=== PATIENT | female | born 1965 | race American Indian/Alaskan Native ===

== ENCOUNTER 2018-01-31 09:43 | Outpatient (CLI) | payer OTHER ==
--- NOTE | 2018-01-31 11:12 | Ultrasound Report ---
BILATERAL DIGITAL DIAGNOSTIC MAMMOGRAM with CAD and RIGHT BREAST ULTRASOUND: 01/31/18 10:00:00 CLINICAL: Right breast lump. COMPARISON:None. FINDINGS: The breasts are heterogeneously dense, which may obscure small masses. An oval lobulated right periareolar mass at 11 o'clock approximately 3 cm from the nipple correlates with the palpable lump.It contains a few calcifications. No other mass. No architectural distortion or suspicious calcifications. The left breast is negative.. Ultrasound of the right breast demonstrated a superficial solid oval growth lobulated heterogeneous hypoechoic mass at 11 o'clock 5 cm from the nipple. It measures 3.7 x 2.1 x 4.3 cm and corresponds to the mammographic mass. It contains a few relatively large calcifications which are identified on the ultrasound. IMPRESSION: A solid 4.3 cm right breast mass at 11 o'clock 3-5 cm from the nipple. Negative left breast. BI-RADS CATEGORY: 4--Suspicious RECOMMENDATION: Ultrasound guided needle core biopsy of the right breast mass. Routine screening of the left breast. ACR BI-RADS MAMMOGRAPHIC CODES: 0 = Needs additional imaging evaluation; 1 = Negative; 2 = Benign; 3 = Probably benign; 4 = Suspicious; 5 = Malignant; 6 = Known biopsy-proven malignancy COMMENT: 1. Dense breast tissue, i.e., adenosis, fibrocystic changes, etc., may obscure an underlying neoplasm. 2. Approximately 10% of cancers are not detected with mammography. 3. A negative mammography report should not delay biopsy if a clinically suspicious mass is present. COMMENT: Patient follow-up letters are generated by our [facility] ([facility]) application.
== END 2018-01-31 09:44 | disposition home or self-care (01) ==
LOC: MAMMO 09:43
PROVIDERS: ATTEND Student in an Organized Health Care Education/Training Program
DX: N63.10 Unspecified lump in the right breast, unspecified quadrant (principal); R92.8 Other abnormal and inconclusive findings on diagnostic imaging of breast
CPT/HCPCS: 77066

== ENCOUNTER 2018-02-20 09:35 | Outpatient (CLI) | payer OTHER ==
--- NOTE | 2018-02-25 11:29 | Ultrasound Report ---
ULTRASOUND GUIDED NEEDLE CORE BIOPSY RIGHT BREAST WITH CLIP PLACEMENT: 02/20/18 09:30:00 CLINICAL: A solid 4.3 cm right breast mass. COMPARISON :01/31/18 FINDINGS: The procedure was explained to the patient and informed consent was obtained. Ultrasound demonstrated the previously described mass at 11 o'clock approximately 3 cm from the nipple. I marked the breast with a felt tip marker and a time out was called. The skin was prepped with Betadine and anesthetized with 1% lidocaine. Needle core biopsy was performed through a tiny dermatotomy using ultrasound guidance, 2% lidocaine with epinephrine for deep anesthesia and a 14-gauge Achieve biopsy device. 3 cores were obtained and placed in formalin. A clip was deployed within the mass. The patient tolerated the procedure well and there were no apparent complications. Hemostasis was achieved with minimal pressure and a sterile dressing was applied. A two view mammogram demonstrated satisfactory concordant clip placement. She left the department in good condition and was given instructions for wound care and followup. IMPRESSION: Uncomplicated ultrasound guided needle core biopsy with clip placement right breast.
== END 2018-02-20 09:36 | disposition home or self-care (01) ==
LOC: SPVWC 09:35
PROVIDERS: ATTEND Student in an Organized Health Care Education/Training Program
DX: N60.11 Diffuse cystic mastopathy of right breast (principal)
CPT/HCPCS: 19083; 77065; 88305; A4648

== ENCOUNTER 2020-12-12 08:43 | Outpatient (CLI) | payer BC ==
--- NOTE | 2020-12-12 09:55 | Mammography Report ---
DIGITAL DIAGNOSTIC MAMMOGRAM WITH CAD CONVENTIONAL, 12/12/2020 CLINICAL INFORMATION / INDICATION: Right breast swelling for one year. Prior benign right breast biop sy. N64.9 DISORDER OF THE BREAST TECHNIQUE: Digital bilateral mammographic imaging was performed. This examination was interpreted with the benefit of Computer-aided Detection analysis. COMPARISON: 02/20/2018, 01/31/2018 FINDINGS: Breast Density: The breasts are heterogeneously dense, which may obscure small masses. There is markedly increased density throughout the right breast since the last mammogram secondary to a large mass that occupies the entire right breast. Calcifications of varying shape and size have in creased in number throughout the right breast with a generalized distribution. A previously seen [facility] breast biopsy clip is unchanged. No suspicious mass, calcification, asymmetry or architectural distortion is seen in the left breast. IMPRESSION: Interval development of a suspected large right breast mass occupying almost the entire b reast. A right breast ultrasound is recommended for further evaluation. Follow up recommendation: Ultrasound BI-RADS Category 0: Incomplete. Needs additional imaging evaluation and/or prior mammograms for shira aburto. A "normal" or negative report should not discourage follow up or biopsy of a clinically significant f inding. A written summary of these findings will be mailed to the patient. The patient will be entered into a mammography reporting system which will generate a reminder letter for the patient's next appointmen t at the appropriate interval. According to the [employer], yearly mammograms are recommended starting at age 40 and continuing as long as a woman is in good health. Breast MRI is recommended for women with an christo roximately 20-25% or greater lifetime risk of breast cancer, including women with a strong family his tory of breast or ovarian cancer and women who have been treated for Hodgkin's disease. Signer Name: Tulio Vincent MD Signed: 12/12/2020 9:51 AM Workstation Name: [id number]
== END 2020-12-12 08:44 | disposition home or self-care (01) ==
LOC: SPVWC 08:43
PROVIDERS: ATTEND Surgery
DX: R92.1 Mammographic calcification found on diagnostic imaging of breast (principal)
CPT/HCPCS: 77066

== ENCOUNTER 2020-12-13 08:10 | Outpatient (CLI) | payer BC ==
[2020-12-13] MEDS ORDERED: LIDOCAINE (1%) 10 MG/1 ML VIAL 20 ML MDV ONE (09:04)
[2020-12-13] MEDS ORDERED: LIDOCAINE (1%) 10 MG/1 ML VIAL 20 ML MDV INFILTRATI ONE (10:00)
[2020-12-13] MEDS ORDERED: LIDOCAINE 2%/EPINEPHRINE 1:200,000 VIAL (20 ML) INFILTRATI ONE (10:00)
--- NOTE | 2020-12-13 10:28 | Ultrasound Report ---
ULTRASOUND GUIDED RIGHT BREAST BIOPSY, 12/13/2020 CLINICAL INFORMATION / INDICATION: Large right breast mass. COMPARISON: Recent mammogram 12/12/2020 and older mammogram 01/31/2018 PROCEDURE: Risks, benefits, and indications to the procedure were discussed with the patient in detail, includin g bleeding, infection, hematoma formation, and inadequate tissue sampling. The patient agreed to proc eed with both verbal and written consent. A timeout procedure was performed with two patient identifi ers. The breast was prepped and draped in the usual sterile fashion. Lidocaine 1% was used for local anes thesia. Under direct ultrasound guidance, multiple core samples were obtained of the superior region of the right breast. A biopsy marker was then placed. Biopsy device was removed and hemostasis achie lynn with manual pressure. A sterile dressing was applied to the skin. The patient tolerated the procedure without difficulty. No complications were encountered. Postbiopsy instructions were discussed with the patient and given in writing. Specimens were sent to pathology. Please note that no mammogram technologist was available to perform a postbiopsy mammogram. IMPRESSION: 1. Technically successful ultrasound guided right breast biopsy. 2. At the time of patient's next appointment with Dr. Monsalve, a postbiopsy right diagnostic mammog alejandro should be obtained for documentation of clip placement. Biopsy results are pending and will be reported in an addendum. Signer Name: Ivett Ferrera MD Signed: 12/13/2020 10:23 AM Workstation Name: [id number]
--- NOTE | 2020-12-13 10:30 | Ultrasound Report ---
ULTRASOUND GUIDED right axillary BIOPSY, 12/13/2020 CLINICAL INFORMATION / INDICATION: Large right breast mass with abnormal right axillary lymph nodes. COMPARISON: Recent mammogram 12/12/2020 PROCEDURE: Risks, benefits, and indications to the procedure were discussed with the patient in detail, includin g bleeding, infection, hematoma formation, and inadequate tissue sampling. The patient agreed to proc eed with both verbal and written consent. A timeout procedure was performed with two patient identifi ers. The breast was prepped and draped in the usual sterile fashion. Lidocaine 1% with and without epineph rine were used for local anesthesia. Under direct ultrasound guidance, multiple core samples were obt ained of an abnormal lymph node in the right axilla. This lymph node measured 10 cm in length, but de monstrated diffuse cortical thickening. A biopsy marker was then placed. Biopsy device was removed an d hemostasis achieved with manual pressure. A sterile dressing was applied to the skin. The patient tolerated the procedure without difficulty. No complications were encountered. Postbiopsy instructions were discussed with the patient and given in writing. Specimens were sent to pathology. IMPRESSION: 1. Technically successful ultrasound guided right axillary lymph node biopsy. Biopsy results are pending and will be reported in an addendum. Signer Name: Ivett Ferrera MD Signed: 12/13/2020 10:25 AM Workstation Name: [id number]
== END 2020-12-13 08:11 | disposition home or self-care (01) ==
LOC: US 08:10
PROVIDERS: ATTEND Surgery
DX: N63.11 Unspecified lump in the right breast, upper outer quadrant (principal); N64.89 Other specified disorders of breast; N62 Hypertrophy of breast; I89.8 Other specified noninfective disorders of lymphatic vessels and lymph nodes; F17.210 Nicotine dependence, cigarettes, uncomplicated; I10 Essential (primary) hypertension
CPT/HCPCS: 19083; 38505; 76942; 88305; A4648

== ENCOUNTER 2020-12-15 08:05 | Emergency (ER) | payer BC ==
[2020-12-15 08:15] VITALS: BP 161/91
--- NOTE | 2020-12-15 08:44 | Emergency Department Report ---
- General Chief complaint: Medical Clearance Stated complaint: RT BREAST/PUS Time Seen by Provider: 12/15/20 08:19 Source: patient Mode of arrival: Ambulatory Limitations: No Limitations - History of Present Illness Initial comments: The patient was evaluated in the emergency department for symptoms described in the history of present illness. He/she was evaluated in the context of the global COVID-19 pandemic, which necessitated consideration that the patient might be at risk for infection with the virus that causes COVID-19. Institutional protocols and algorithms that pertain to the evaluation of patients at risk for COVID-19 are in a state of rapid change based on information released by regulatory bodies including the CDC and federal and state organizations. These policies and algorithms were followed during the patient's care in the emergency department. Please note that these policies, procedures and recommendations changed on a rapid basis. 54-year-old -[place] female presents to the emergency room complaining of discharge from her right breast. Patient [facility] And now she states that it is having discharge. Patient denies any fever chills no nausea no vomiting. She has had a breast mass since [address] records[address] Ronnie esparza is a surgeon that is managing her care. complaint: other (Right breast mass) Onset/Timin -: days(s) Tetanus Up to Date: yes Location: chest (Right breast) Severity: mild Severity scale (0 -10): 5 Consistency: intermittent Improves with: none Worsens with: none Context: none Associated symptoms: denies other symptoms - Related Data Previous Rx's Medication Instructions Recorded Last Taken Type cephALEXin [Keflex] 500 mg PO Q12HR 7 Days #14 cap 12/15/20 Unknown Rx Allergies Allergy/AdvReac Type Severity Reaction Status Date / Time No Known Allergies Allergy Verified 12/15/20 08:10 Abscess Boil HPI - HPI Chief Complaint: Medical Clearance Stated Complaint: RT BREAST/PUS Time Seen by Provider: 12/15/20 08:19 Home Medications: Previous Rx's Medication Instructions Recorded Last Taken Type cephALEXin [Keflex] 500 mg PO Q12HR 7 Days #14 cap 12/15/20 Unknown Rx Allergies/Adverse Reactions: Allergies Allergy/AdvReac Type Severity Reaction Status Date / Time No Known Allergies Allergy Verified 12/15/20 08:10 ED Review of Systems ROS: Stated complaint: RT BREAST/PUS Other details as noted in HPI Comment: All other systems reviewed and negative ED Past Medical Hx - Past Medical History Previous Medical History?: No Hx Hypertension: (no meds) Hx Seizures: Yes (States not alcohol related. Does not take medicine) - Surgical History Past Surgical History?: No - Social History Smoking Status: Current Every Day Smoker Substance Use Type: None - Medications Home Medications: Home Medications Medication Instructions Recorded Confirmed Last Taken Type cephALEXin [Keflex] 500 mg PO Q12HR 7 Days #14 cap 12/15/20 Unknown Rx ED Physical Exam - General Limitations: No Limitations General appearance: alert, in no apparent distress - Head Head exam: Present: atraumatic, normocephalic - Eye Eye exam: Present: normal appearance - ENT ENT exam: Present: mucous membranes moist - Neck Neck exam: Present: normal inspection, full ROM - Respiratory Respiratory exam: Present: other (Right breast large firm mass with a eraser sized opening that is having cottage cheese consistent discharge very minimal redness minimal tenderness). Absent: accessory muscle use - Extremities Exam Extremities exam: Present: normal inspection, full ROM - Back Exam Back exam: Present: normal inspection - Neurological Exam Neurological exam: Present: alert, oriented X3, normal gait - Psychiatric Psychiatric exam: Present: normal affect, normal mood - Skin Skin exam: Present: warm, dry, intact, normal color. Absent: rash ED Course Vital Signs 12/15/20 08:14 Temperature 98.1 F Pulse Rate 90 Respiratory 20 Rate Blood Pressure 161/91 O2 Sat by Pulse 95 Oximetry - Consultations Consultation #1: 12/15/20 08:[address] Ani esparza she recommends I place patient on Keflex 500 mg every 12 hours for 7 days. She recommends that patient keeps her appointment on Saturday. She recommends that patient keeps the wound covered with gauze. ED Medical Decision Making - Medical Decision Making 54-year-old -[place] female presents to the emergency room complaining of discharge from her right breast. Patient had a [facility]. And now she states that it is having discharge. Patient denies any fever chills no nausea no vomiting. She has had a breast mass since [address] our [address] records[address] Dr. Ronnie esparza is a surgeon that is managing her care. Spoke to Dr. Monsalve breast surgeon she recommends patient to be placed on Keflex 500 mg every 12 hours for 7 days. Patient is to keep the wound covered with clean gauze and to keep her appointment on Saturday. Critical care attestation.: If time is entered above; I have spent that time in minutes in the direct care of this critically ill patient, excluding procedure time. ED Disposition Clinical Impression: Breast mass, right Disposition: DC- TO HOME OR SELFCARE Is pt being admited?: No Does the pt Need Aspirin: No Condition: Stable Additional Instructions: Please complete your antibiotics as prescribed. Please keep a clean gauze on your wound of your right breast. You must keep your appointment with Dr. Monsalve your breast surgeon for Saturday. Tylenol or ibuprofen as needed for pain management. Prescriptions: cephALEXin [Keflex] 500 mg PO Q12HR 7 Days #14 cap Referrals: PRIMARY MD PAWEL [Primary Care Provider] - 3-5 Days BRENDA MONSALVE MD [Staff Physician] - 3-5 Days Forms: Work/School Release Form(ED)
== END 2020-12-15 09:08 | disposition home or self-care (01) ==
LOC: ED 08:05
DX: N63.10 Unspecified lump in the right breast, unspecified quadrant (principal); R56.9 Unspecified convulsions; F17.200 Nicotine dependence, unspecified, uncomplicated; Z79.899 Other long term (current) drug therapy
CPT/HCPCS: 99282

== ENCOUNTER 2021-02-06 05:29 | Emergency (ER) | payer OTHER ==
[2021-02-06 06:52] VITALS: BP 176/98
--- NOTE | 2021-02-06 10:09 | Emergency Department Report ---
- General Chief complaint: Skin/Abscess/Foreign Body Stated complaint: RT BREAST TUMOR Time Seen by Provider: 02/06/21 08:45 Source: patient, EMS Mode of arrival: Ambulatory Limitations: No Limitations - History of Present Illness Initial comments: 55-year-old -[place] female who is known to me comes in reporting that her right breast tumor is getting worse. Patient complains of pain. Patient is supposed to be following up with Dr. Monsalve but she states she lost her insurance and did not follow back up. Patient denies any fever chills no nausea no vomiting. MD complaint: lesion - Related Data Previous Rx's Medication Instructions Recorded Last Taken Type cephALEXin [Keflex] 500 mg PO Q12HR 7 Days #14 cap 12/15/20 Unknown Rx traMADoL [Ultram 50 MG tab] 50 mg PO Q6HR PRN #8 tablet 02/06/21 Unknown Rx Allergies Allergy/AdvReac Type Severity Reaction Status Date / Time No Known Allergies Allergy Verified 12/15/20 08:10 Abscess Boil [facility] Chief Complaint: Skin/Abscess/Foreign Body Stated Complaint: RT BREAST TUMOR Time Seen by Provider: 02/06/21 08:45 Home Medications: Previous Rx's Medication Instructions Recorded Last Taken Type cephALEXin [Keflex] 500 mg PO Q12HR 7 Days #14 cap 12/15/20 Unknown Rx traMADoL [Ultram 50 MG tab] 50 mg PO Q6HR PRN #8 tablet 02/06/21 Unknown Rx Allergies/Adverse Reactions: Allergies Allergy/AdvReac Type Severity Reaction Status Date / Time No Known Allergies Allergy Verified 12/15/20 08:10 ED Review of Systems ROS: Stated complaint: RT BREAST TUMOR Other details as noted in HPI ED Past Medical Hx - Past Medical History Hx Hypertension: (no meds) Hx Seizures: Yes (States not alcohol related. Does not take medicine) - Social History Smoking Status: Current Every Day Smoker - Medications Home Medications: Home Medications Medication Instructions Recorded Confirmed Last Taken Type cephALEXin [Keflex] 500 mg PO Q12HR 7 Days #14 cap 12/15/20 Unknown Rx traMADoL [Ultram 50 MG tab] 50 mg PO Q6HR PRN #8 tablet 02/06/21 Unknown Rx ED Physical Exam - General Limitations: No Limitations ED Course Vital Signs 02/06/21 06:50 Temperature 98.0 F Pulse Rate 80 Respiratory 18 Rate Blood Pressure 176/98 O2 Sat by Pulse 98 Oximetry ED Medical Decision Making - Medical Decision Making 55-year-old -[place] female who is known to me comes in reporting that her right breast tumor is getting worse. Patient complains of pain. Patient is supposed to be following up with Dr. Rebeca esparza but she states she lost her insurance and did not follow back up. Patient denies any fever chills no nausea no vomiting. Spoke with Dr. Jose for she states she has been trying to call patient as her number was disconnected. She asked that the patient follow up in her office tomorrow at 10 AM at her's [facility] office and she will work her in. Patient be given a prescription for tramadol for pain. Phone number of the patient mother is [phone] Critical care attestation.: If time is entered above; I have spent that time in minutes in the direct care of this critically ill patient, excluding procedure time. ED Disposition Clinical Impression: Breast mass, right Disposition: DC-01 TO HOME OR SELFCARE Is pt being admited?: No Does the pt Need Aspirin: No Condition: Stable Additional Instructions: Please report to Dr. Monsalve office in [facility] 10 AM. You may have to wait as she she is working you in to be seen. Lianet Monsalve MD, board-certified Surgical Breast Oncologist, and [facility] team are seeing patients at [facility], [address] [place] [address], [address] in [place] Prescriptions: traMADoL [Ultram 50 MG tab] 50 mg PO Q6HR PRN #8 tablet PRN Reason: Pain Referrals: PRIMARY MD PAWEL [Primary Care Provider] - 3-5 Days LIANET MONSALVE MD [Staff Physician] - 3-5 Days Forms: Work/School Release Form(ED)
== END 2021-02-06 10:45 | disposition home or self-care (01) ==
LOC: ED 05:29
DX: N63.10 Unspecified lump in the right breast, unspecified quadrant (principal); F17.200 Nicotine dependence, unspecified, uncomplicated; Z86.69 Personal history of other diseases of the nervous system and sense organs; Z79.899 Other long term (current) drug therapy